=== PATIENT | female | born 1965 | race Caucasian/White ===

== ENCOUNTER → 2022-05-05 | Outpatient (CLI) | payer BC ==
[~2022-05-05] MED LIST: ASPI1TAB17 PO; NITR100C3 PO; PHEN200T27 PO; SOLI5TAB4 PO; TRAM50TA2 PO
--- NOTE | 2022-05-05 13:01 | Diagnostic Imaging Report ---
INDICATION: Right hip pain. COMPARISON: Imaging from the same date. TECHNIQUE: Two radiographs of the right hip dated 05/05/2022. FINDINGS: Stimulator lead is seen extending overlying the right sacrum. No acute fracture or dislocation. No destructive osseous process. The right sacroiliac joint is intact. Mild degenerative changes of the right hip with minimal joint space narrowing and mild osteophyte formation. The right femoral head maintains its normal shape and contour. IMPRESSION: No acute osseous abnormality with mild degenerative changes of the right hip. Dictated by: Dictated on workstation # [id number]
--- NOTE | 2022-05-05 13:05 | Diagnostic Imaging Report ---
INDICATION: Left hip pain COMPARISON: Imaging from the same date TECHNIQUE: 2 radiographs left hip dated 05/05/2022 FINDINGS: Electronic device is present with the battery pack overlying the left pelvis with a lead extending overlying the sacrum. No acute fracture or dislocation. No destructive osseous process. The left hip joint is well maintained with minimal osteophytosis. The left femoral head maintains normal shape and contour. No suspicious radiopaque foreign body. IMPRESSION: No acute osseous abnormality with minimal degenerative changes of the left hip. Dictated by: Dictated on workstation # [id number]
== END ==
LOC: RAD FS 10:04
PROVIDERS: ATTEND Nurse Practitioner Family
DX: M16.11 Unilateral primary osteoarthritis, right hip (principal); M25.552 Pain in left hip
CPT/HCPCS: 73502

== ENCOUNTER → 2022-06-03 | Outpatient (CLI) | payer BC | LOC: RAD 14:10 | PROVIDERS: ATTEND Nurse Practitioner Family | DX: S32.010G Wedge compression fracture of first lumbar vertebra, subsequent encounter for fracture with delayed healing (principal); M54.50 Low back pain, unspecified; Z53.9 Procedure and treatment not carried out, unspecified reason ==